=== PATIENT | female | born 1985 | race American Indian/Alaskan Native ===

== ENCOUNTER 2017-04-18 09:57 | Outpatient (CLI) | payer OTHER | END 2017-04-18 10:54 | disposition home or self-care (01) | LOC: NST 09:57 | DX: Z34.93 Encounter for supervision of normal pregnancy, unspecified, third trimester (principal) ==

== ENCOUNTER 2017-05-05 11:00 | Inpatient (IN) | payer OTHER ==
[~2017-05-05] VITALS: Ht 154.9 cm; Wt 69.9 kg
[2017-05-24] MEDS ORDERED: PRENATAL 19 TA1 EAC1 PO (08:57)
== END 2017-05-27 11:32 | disposition home or self-care (01) | DRG 775 ==
LOC: LDR 05-24 07:23 → OB/GYN 05-24 07:23
PROC: 0DQR0ZZ Repair Anal Sphincter, Open Approach (ICD-10-PCS; principal; 2017-05-24)
PROC: 10D07Z6 Extraction of Products of Conception, Vacuum, Via Natural or Artificial Opening (ICD-10-PCS; 2017-05-24)
PROC: 0W8NXZZ Division of Female Perineum, External Approach (ICD-10-PCS; 2017-05-24)
PROC: 4A1HXCZ Monitoring of Products of Conception, Cardiac Rate, External Approach (ICD-10-PCS; 2017-05-24)
PROC: 4A033R1 Measurement of Arterial Saturation, Peripheral, Percutaneous Approach (ICD-10-PCS; 2017-05-24)
DX: O70.20 Third degree perineal laceration during delivery, unspecified (principal); Z37.0 Single live birth; Z3A.38 38 weeks gestation of pregnancy

== ENCOUNTER 2017-05-19 08:27 | Outpatient (CLI) | payer OTHER | END 2017-05-19 09:15 | disposition home or self-care (01) | LOC: NST 08:27 | DX: Z34.83 Encounter for supervision of other normal pregnancy, third trimester (principal) ==

== ENCOUNTER 2019-04-29 12:31 | Outpatient (CLI) | payer OTHER ==
[~2019-04-29 12:31] MED LIST: PRENATAL 19 TA1 EAC1 PO
== END 2019-04-29 12:37 | disposition home or self-care (01) ==
LOC: SONOGRAMA 12:31
DX: N91.1 Secondary amenorrhea (principal)

== ENCOUNTER 2019-07-10 09:34 | Outpatient (CLI) | payer OTHER | END 2019-07-10 10:50 | disposition home or self-care (01) | LOC: NST 09:34 | DX: Z34.82 Encounter for supervision of other normal pregnancy, second trimester (principal) ==

== ENCOUNTER 2019-10-06 05:36 | Inpatient (IN) | payer OTHER ==
[~2019-10-06] VITALS: Ht 154.9 cm; Wt 3.6 kg
== END 2019-10-09 10:03 | disposition home or self-care (01) | DRG 788 ==
LOC: OB/GYN 05:36 → LDR 05:36 → OB/GYN 13:56 → SURH 10-17 11:34
PROVIDERS: ADMIT Obstetrics & Gynecology; ATTEND Obstetrics & Gynecology
PROC: 10907ZC Drainage of Amniotic Fluid, Therapeutic from Products of Conception, Via Natural or Artificial Opening (ICD-10-PCS; 2019-10-06)
PROC: 3E033VJ Introduction of Other Hormone into Peripheral Vein, Percutaneous Approach (ICD-10-PCS; 2019-10-06)
PROC: 10D00Z1 Extraction of Products of Conception, Low, Open Approach (ICD-10-PCS; principal; 2019-10-06 12:00)
DX: O65.4 Obstructed labor due to fetopelvic disproportion, unspecified (principal); Z3A.38 38 weeks gestation of pregnancy; Z37.0 Single live birth

== ENCOUNTER 2020-04-08 09:06 | Outpatient (CLI) | payer OTHER | END 2020-04-08 10:58 | disposition home or self-care (01) | LOC: TOM 09:06 | PROVIDERS: ATTEND Specialist | DX: R42 Dizziness and giddiness (principal); M54.2 Cervicalgia ==